=== PATIENT | male | born 1980 | race Caucasian/White ===

== ENCOUNTER 2019-12-26 22:01 | Emergency (ER) | payer OTHER ==
[~2019-12-26] VITALS: Ht 180.3 cm; Wt 74.8 kg
[~2019-12-26 22:01] MED LIST: AZIT250 PO; CEPH500 PO; DIPATR PO; GABA600 PO; HYDACE10B PO; HYDACE5 PO; HYOS.125 SL; IBUP800 PO; NITR.4SL SL; POTCHL20ER PO; PROM25 PO; Percocet 10-321 EACH PO; RXHYDACE PO; RXLORA1 PO; TOBR.3OPSO OP
== END 2019-12-27 01:16 | disposition home or self-care (01) ==
LOC: ER 22:01
DX: S70.02XA Contusion of left hip, initial encounter (principal); F17.210 Nicotine dependence, cigarettes, uncomplicated; W19.XXXA Unspecified fall, initial encounter
CPT/HCPCS: 73502; 99283-25